=== PATIENT | male | born 1940 | race Caucasian/White ===

== ENCOUNTER → 2017-05-05 18:49 | Outpatient (CLI) | payer MEDICARE, SELFPAY | PROVIDERS: Family Provider Internal Medicine; PCP Internal Medicine; Visit Provider Podiatrist | DX: L97.529 Non-pressure chronic ulcer of other part of left foot with unspecified severity (principal) | CPT/HCPCS: 87070; 87205 ==

== ENCOUNTER → 2017-05-12 12:17 | Outpatient (CLI) | payer MEDICARE, SELFPAY ==
[2017-05-12 13:14] LABS: Hematocrit 36.7 % (40-54); Hemoglobin 12.7 g/dl (13.0-16.5); Mean Corp Hgb Conc 34.6 g/gl (32-36); Mean Corpuscular Hgb 32.5 pg (27.0-32.0); Mean Corpuscular Volume 93.9 fL (80-94); Mean Platelet Vol. 8.9 fl (6.2-12.0); Platelet Count 312 K/mm3 (150-450); RBC Distribution Width CV 13.2 % (11.6-14.6); RBC Distribution Width SD 43.8 fl (35.1-43.9); Red Blood Count 3.91 M/mm3 (4.6-6.2); White Blood Count 9.4 K/mm3 (4.4-11.0)
[2017-05-12 13:21] LABS: Erythrocyte Sedimentation Rate 23 mm/hr (0-20)
[2017-05-12 13:44] LABS: ALB/GLOB Ratio 0.8 RATIO (0.9-2.4); AST(SGOT) 18 U/L (15-37); Alanine Aminotransfer ALT/SGPT 16 U/L (16-61); Albumin, Serum 3.1 g/dL (3.2-5.0); Alkaline Phosphatase 65 U/L (45-117); Anion Gap 10 (5-15); BUN 42 mg/dL (7-18); CRP 9.55 mg/L (0.0-3.0); Calcium,Total 8.8 mg/dL (8.5-10.1); Chloride 100 mmol/L (98-107); Creatinine, Serum 4.19 mg/dL (0.70-1.30); EST Glomerular Filtration Rate 15 mL/min (>60); Est Glom Filt Rate - Afr Amer 18 mL/min (>60); Globulin 4.1 g/dL (2.2-4.2); Glucose 313 mg/dL (74-106); Potassium 3.7 mmol/L (3.5-5.1); Protein, Total 7.2 g/dL (6.4-8.2); Sodium Level 136 mmol/L (136-145)
[2017-05-12 17:31] LABS: Basophil% 0.3 % (0-1); Eosinophils% 1.5 % (0-5); Lymphocyte % 14.5 % (19-41); Monocyte% 8.4 % (0-10); Neutrophil # 6.89 X10^3/uL (2.7-7.7); Neutrophil % 75.1 % (47-70)
[2017-05-12 17:32] LABS: Absolute Lymphocyte Count 1.36 X10^3/ul (0.83-4.51); Absolute Neutrophil Count 7.1 X10^3/uL (2.0-7.7); Basophil# 0.03 X10^3/uL; Eosinophil# 0.14 X10^3/uL; Lymphocyte # 1.33 X10^3/ul (4.0); Monocyte# 0.77 X10^3/uL; POSITIVE COUNT NO; POSITIVE DIFFERENTIAL NO
== END ==
PROVIDERS: Family Provider Internal Medicine; PCP Internal Medicine; Visit Provider Podiatrist
DX: M10.9 Gout, unspecified (principal); L97.529 Non-pressure chronic ulcer of other part of left foot with unspecified severity; L03.90 Cellulitis, unspecified
CPT/HCPCS: 36415; 80053; 84550; 85025; 85652; 86140; 87070; 87186; 87205

== ENCOUNTER 2017-06-06 09:00 | Outpatient (RCR) | payer MEDICARE, SELFPAY ==
[2017-05-28 10:24] VITALS: BP 130/68; PULSE 98; RESP 18; TEMP 36; BMI 27.3
--- NOTE | 2017-05-28 12:56 | PN.PCM_ITS ---
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 The onset several months ago and the exact onset is unknown. He denies drainage and has stopped dressing care. He is confused and is only able to partially participate in his exam. 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 Medications: Reviewed. Allergies: Carvedilol. Social: Denies current smoking alcohol or drug use. Former smoking habits noted. Family: Not pertinent. Review of system: Denies fever, chill, nausea, fatigue, shortness of breath, claudication, chest pain. He has left second toe pain Progress of Wound: Return - Physical Exam Vital Signs Temp Pulse Resp BP 96.8 F L 98 18 130/68 H 05/28/17 10:24 05/28/17 10:24 05/28/17 10:24 05/28/17 10:24 General: Alert, Oriented x3, Cooperative HEENT: Atraumatic Extremities: No cyanosis, Capillary Refill Less than 3 Seconds, No Calf Tenderness - Negative Sue and Thakkar bilateral, Diminished Peripheral Pulses, Edema Skin: Ulcer/ Wound - No erythema, no streaking, no bhakti necrosis. On expression of the left second dorsal medial toe there is a seropurulent drainage with pain. There is bogginess. There is no additional purulence on expression or odor noted. There is edema to the left second toe noted. Wound Measurements and Assessment - Nurse 1 - General Ulcer Measurement Start: 05/28/17 10:23 Freq: Status: Active Protocol: Activity Type Activity Date Activity User E-Sign Co-Sign Detail Recorded Client Recorded Date Recorded By Document 05/28/17 10:24 [id number] 05/28/17 10:38 05/28/17 10:24 Wound Center Nurse 1 [Ulcer Assessment] #1 LEFT 2ND TOE -Combined with other wound No -Current Size (cm) - Length 0.1 -Current Size (cm) - Width 0.1 -Current Size (cm) - Depth 0.1 -Total Square Cm 0.01 -Date of Last Picture (Recall this 05/28/17 field) -Photo Taken Yes -Epithelialization None Present -Tunneling No -Undermining/Tunneling No -Circular Undermining No -Exudate Amt None Present (0 %) -Granulation Amt None Present (0 %) -Granulation Quality N/A -Slough/Fibrin No -Necrosis Amt None Present (0 %) -Structure Exposed N/A -Texture (Kelsie-wound Skin Appearance) No Abnormality -Moisture (Kelsie-wound Skin Appearance Assessed ) -Color (Kelsie-wound Skin Appearance) No Abnormality -Temperature (Kelsie-wound Skin Cool/Cold Appearance) -Tenderness on Palpation (Kelsie-wound Yes Skin Appearance) -Foul Odor after Cleansing Yes, Due to Product Use [Edema Assessment] -Lower Limb Edema Present No -Right Calf (cm) 32.2 -Right Ankle (cm) 21.0 -Left Calf (cm) 33.8 -Left Ankle (cm) 21.5 - Nurse 2 - General Ulcer CM Notes Start: 05/28/17 10:23 Freq: Status: Active Protocol: Activity Type Activity Date Activity User E-Sign Co-Sign Detail Recorded Client Recorded Date Recorded By Document 05/28/17 11:27 [id number] 05/28/17 12:02 05/28/17 11:27 Wound Center Nurse 2 [Procedure/Treatment] #1 LEFT 2ND TOE -Time 11:55 -Correct Patient Yes -Correct Side, Site, Position Yes -Correct Procedure Yes -Procedure Performed Yes -Type of Procedure Debridement -Clinical Debridement Subcutaneous -Post Debridement Size (cm) - Length 0.2 -Post Debridement Size (cm) - Width 0.2 -Post Debridement Size (cm) - Depth 0.1 -Total Square Cm 0.04 -Wound/Ulcer Outcome Not Healed -Ulcer Cleansing Rinsed/ Irrigated with Saline -Foul Odor after Cleansing No -Bioengineered Tissue No -Topical Lidocaine (%) 4 -Bleeding Controlled with Pressure -Treatment Response Procedure Tolerated Well [See Physician Procedure note for Specifics] Pain Scale: 0-10 Numeric [Pain] -Is Patient Pain Free? Yes Musculoskeletal: No Tenderness to Palpation of Joints or Extremities, Muscle Wasting, - - Subtle hallux valgus deformity is noted in the hallux abuts the second. The second toe is fairly rectus very mild visible contraction. There is laxity noted at the proximal interphalangeal joint Neurological: - - Lack of epicritic sensation to light touch left foot Psych/Mental Status: Normal Affect, Appropriate Debridement Note Post-Debridement Measurements/Treatment WC - Nurse 2 - General Ulcer CM Notes Start: 05/28/17 10:23 Freq: Status: Active Protocol: Activity Type Activity Date Activity User E-Sign Co-Sign Detail Recorded Client Recorded Date Recorded By Document 05/28/17 11:27 [id number] 05/28/17 12:02 05/28/17 11:27 Wound Center Nurse 2 #1 LEFT 2ND TOE -Time 11:55 -Correct Patient Yes -Correct Side, Site, Position Yes -Correct Procedure Yes -Procedure Performed Yes -Type of Procedure Debridement -Clinical Debridement Subcutaneous -Post Debridement Size (cm) - Length 0.2 -Post Debridement Size (cm) - Width 0.2 -Post Debridement Size (cm) - Depth 0.1 -Total Square Cm 0.04 -Wound/Ulcer Outcome Not Healed -Ulcer Cleansing Rinsed/ Irrigated with Saline -Foul Odor after Cleansing No -Bioengineered Tissue No -Topical Lidocaine (%) 4 -Bleeding Controlled with Pressure -Treatment Response Procedure Tolerated Well Pain Scale: 0-10 Numeric Is Patient Pain Free? Yes Wound debrided: dorsal medial second toe Laterality: Left Wound Grade/Stage: grade 3 Type of Debridement: Excisional debridement Anesthesia Used: 4% Lidocaine Solution Depth: in the subcutaneous layer Percentage of wound debrided: 100 Instrument Used: #15 blade Tissue Removed: fibrous, devitalized subcutaneous, biofilm, slough Severity: Fat Layer Exposed Amount of bleeding with debridement: Mild Bleeding Controlled with: Pressure Patient tolerated procedure well Assessment/Plan Active Problems Type 2 diabetes mellitus with diabetic polyneuropathy (Chronic) Chronic ulcer of left foot with fat layer exposed (Chronic) 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 Diabetes with neuropathy. Chronic kidney disease on hemodialysis. Delayed healing. Malnutrition suspected. Left foot deformity. Confusion and limited ability to participate in care plan Plan: I reviewed and discussed his care plan today. We discussed essentials needed for wound healing including infection management, pressure offloading, nutrition, and adequate blood flow. His ulcer site was debrided as noted in the clinical nursing care panel. I recommend changing the dressing daily with Aquacel ag. I recommend offloading this site by wearing a surgical shoe and placing a gauze in the proximal interspace between the first and second left toe. X-rays were obtained at the foot and ankle center earlier this month and this demonstrated osseous destruction and decreased bone density adjacent to the wound site at the proximal interphalangeal joint. There is no soft tissue emphysema or foreign body or acute fracture dislocation noted. This is concerning for osteomyelitis, gout, septic joint. His diagnostic laboratory data was also reviewed with a white blood cell count of 9.4, sedimentation rate 23, C-reactive protein 9.55, uric acid 6.0, creatinine 4.19. It is also noted his hemoglobin A1c from December 2016 was 5.2%. His most recent cultures obtained at the clinical setting demonstrated staph auricularis and coag negative staph. He completed a course of antibiotics including levofloxacin. Infectious disease referral was made to need to be rescheduled. It is noted he missed his last consultation scheduled visit last week. A refill of levofloxacin with renal dosing was provided with hopes of bone penetration with this medication of choice. His decreased redness and edema to the toe is noted however there is concern of continued deeper tissue involvement based on his x- ray findings, and inability to keep this site healed. It is noted he missed several follow-up appointments. I also recommend noninvasive vascular studies in which he orders previously provided. A new order was provided today for segmental pressure, SUSAN, and systolic toe pressures; we will assist him in scheduling this exam. I am concerned about his ability to follow the care plan due to his memory loss and confusion. I discussed this at length with his daughter during his last clinical visit at the foot and ankle center recommended a family member or trained professional accompany him with each visit. To continue with proper diabetic glycemic control and nutritional supplementation to optimize healing. The previously recommended Ron nutritional supplement. Hyperbaric oxygen therapy will be considered in the future. Other options include surgical resection of the involved joint that has deteriorated. He has stabilized at this time. First, I recommend establishing his baseline workup and review this with a family member or care provider. I recommend he returns to clinic in 1 week or call sooner if he has any questions or concerns. I answered all his questions today.
[2017-06-04 11:35] VITALS: BP 133/67; PULSE 89; RESP 18; TEMP 35.8; BMI 27.3
--- NOTE | 2017-06-04 11:40 | BON_PTH ---
PATIENT: CARINA CLARK LOC: [facility] U#:[id number] AGE/SX: 76/M ROOM: RE06/06/[address]: Dr. Hawa Bach DPM : 1940 BED: DIS: 06/09/2017 SPEC #: [id number] RECD: 06/04/17 12:48 STATUS: CHERYL SHANIKA #: [id number] YOSI: 06/04/17 11:[address]: Hawa Bach DEPT: SURGICAL PATHOLOGY RECD BY: Katlyn Vazquez ENTERED: 06/04/17 14:46 SP TYPE: Bone OTHR DR: Dr. Geovanna Ly DO Tissues: Bone of foot, NOS Procedures: Decalcification bone/plaque Surgery Specimen Level III Surgery Specimen Level IV HEADER OPERATION: Bone biopsy left second toe PRE-OP DIAGNOSIS: Nonhealing wound with bone exposed TISSUE SUBMITTED: Left second toe bone MICROSCOPIC DIAGNOSIS Left second toe bone, biopsy: The specimen did not survive processing. SJ:lópez 06/12/17 COMMENT If there is high suspicion of osteomyelitis, rebiopsy is suggested if clinically indicated. Case has been reviewed in consultation with Dr. Martinez who concurs with the above diagnosis. IDC:AM MICROSCOPIC DESCRIPTION Slides are reviewed. GROSS DESCRIPTION Received in fixative is one container labeled with the patient's name and designated bone left second toe. The specimen consists of an irregular fragment of avila yellow bone measuring 0.2 x 0.2 x <0.1 cm. The specimen is totally submitted in one cassette after decalcification. / AM:lópez 06/04/17 TC: Cannot code CPT: No charge
--- NOTE | 2017-06-04 13:20 | PN.PCM_ITS ---
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 He did have a consultation earlier this morning with infectious disease, Dr. Kim. His antibiotics were changed. He is confused and is only able to partially participate in his exam. 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 Medications: Reviewed. Allergies: Carvedilol. Social: Denies current smoking alcohol or drug use. Former smoking habits noted. Family: Not pertinent. Review of system: Denies fever, chill, nausea, fatigue, shortness of breath, claudication, chest pain. He has left second toe pain Progress of Wound: Stable - Physical Exam Vital Signs Temp Pulse Resp BP 96.4 F L 89 18 133/67 H 06/04/17 11:35 06/04/17 11:35 06/04/17 11:35 06/04/17 11:35 General: Alert, Cooperative, Confused - Intermittent Extremities: No cyanosis, Capillary Refill Less than 3 Seconds, No Calf Tenderness - Negative Sue and Thakkar sign, Diminished Peripheral Pulses, Edema - Decreased, Tenderness - Pain with wound manipulation Skin: Ulcer/ Wound - His erythema and edema to the involved second toe has decreased. There is no odor or warmth. There is no purulence on expression or streaking or bhakti necrosis or eschar noted to the site. Upon wound debridement however there was a little sliver of bone or joint surface and was expressed from the wound bed. This was soft with slight discoloration in it is noted this is a very small piece measuring less than 3 mm in size. Wound Measurements and Assessment WC - Nurse 1 - General Ulcer Measurement Start: 05/28/17 10:23 Freq: Status: Active Protocol: Activity Type Activity Date Activity User E-Sign Co-Sign Detail Recorded Client Recorded Date Recorded By Document 06/04/17 11:35 RB [id number] 06/04/17 11:41 RB 06/04/17 11:35 Wound Center Nurse 1 [Ulcer Assessment] #1 LEFT 2ND TOE -Combined with other wound No -Current Size (cm) - Length 0.1 -Current Size (cm) - Width 0.1 -Current Size (cm) - Depth 0.1 -Total Square Cm 0.01 -Photo Taken No -Epithelialization Small 1-33% -Tunneling No -Undermining/Tunneling No -Circular Undermining No -Classification - Thickness Full Thickness without Exposed Support Structure -Exudate Amt None Present (0 %) -Wound Margin Distinct, Outline Attached -Granulation Amt Medium (34-66%) -Granulation Quality [place] -Slough/Fibrin Yes -Necrosis Amt Medium (34-66%) -Necrotic Tissue Type Adherent Slough -Structure Exposed N/A -Texture (Kelsie-wound Skin Appearance) Assessed -Moisture (Kelsie-wound Skin Appearance Assessed ) Dry/Scaly -Color (Kelsie-wound Skin Appearance) Assessed -Temperature (Kelsie-wound Skin No Abnormality Appearance) (Pt Warm) -Tenderness on Palpation (Kelsie-wound No Skin Appearance) -Ulcer Cleansing Rinsed/ Irrigated with Saline -Foul Odor after Cleansing No -Anesthetic Used 5% Lidocaine Gel [Edema Assessment] -Lower Limb Edema Present Yes -Left Calf (cm) 32 -Left Ankle (cm) 20.5 WC - Nurse 2 - General Ulcer CM Notes Start: 05/28/17 10:23 Freq: Status: Active Protocol: Activity Type Activity Date Activity User E-Sign Co-Sign Detail Recorded Client Recorded Date Recorded By Document 06/04/17 12:14 [id number] 06/04/17 12:15 06/04/17 12:14 Wound Center Nurse 2 [Procedure/Treatment] #1 LEFT 2ND TOE -Time 12:15 -Correct Patient Yes -Correct Side, Site, Position Yes -Correct Procedure Yes -Procedure Performed Yes -Type of Procedure Debridement -Clinical Debridement Bone -Post Debridement Size (cm) - Length 0.2 -Post Debridement Size (cm) - Width 0.2 -Post Debridement Size (cm) - Depth 0.2 -Total Square Cm 0.04 -Wound/Ulcer Outcome Not Healed -Ulcer Cleansing Rinsed/ Irrigated with Saline -Foul Odor after Cleansing No -Bioengineered Tissue No -Bleeding Controlled with Pressure -Treatment Response Procedure Tolerated Well [See Physician Procedure note for Specifics] Pain Scale: 0-10 Numeric [Pain] -Is Patient Pain Free? Yes Musculoskeletal: Muscle Wasting, - - No pain on palpation to the second metatarsophalangeal joint Neurological: Sensory exam intact to light touch and pain Psych/Mental Status: Normal Affect, Appropriate Debridement Note Post-Debridement Measurements/Treatment - Nurse 2 - General Ulcer CM Notes Start: 05/28/17 10:23 Freq: Status: Active Protocol: Activity Type Activity Date Activity User E-Sign Co-Sign Detail Recorded Client Recorded Date Recorded By Document 05/28/17 11:27 [id number] 05/28/17 12:02 Document 06/04/17 12:14 [id number] 06/04/17 12:15 05/28/17 06/04/17 11:27 12:14 Wound Center Nurse 2 #1 LEFT 2ND TOE -Time 11:55 12:15 -Correct Patient Yes Yes -Correct Side, Site, Position Yes Yes -Correct Procedure Yes Yes -Procedure Performed Yes Yes -Type of Procedure Debridement Debridement -Clinical Debridement Subcutaneous Bone -Post Debridement Size (cm) - Length 0.2 0.2 -Post Debridement Size (cm) - Width 0.2 0.2 -Post Debridement Size (cm) - Depth 0.1 0.2 -Total Square Cm 0.04 0.04 -Wound/Ulcer Outcome Not Healed Not Healed -Ulcer Cleansing Rinsed/ Rinsed/ Irrigated with Irrigated with Saline Saline -Foul Odor after Cleansing No No -Bioengineered Tissue No No -Topical Lidocaine (%) 4 -Bleeding Controlled with Pressure Pressure -Treatment Response Procedure Procedure Tolerated Well Tolerated Well Pain Scale: 0-10 Numeric Is Patient Pain Free? Yes Yes Wound debrided: 2nd toe Laterality: Left Wound Grade/Stage: grade 3 Type of Debridement: Excisional debridement Anesthesia Used: 4% Lidocaine Solution Depth: in the subcutaneous layer Percentage of wound debrided: 100 Instrument Used: 3mm curette, Forceps Tissue Removed: fibrous, devitalized subcutaneous, biofilm, slough Severity: Fat Layer Exposed Amount of bleeding with debridement: Mild Bleeding Controlled with: Pressure Patient tolerated procedure well Assessment/Plan Active Problems (Last Updated 06/04/17 @ 08:45 by Lela Soto) Type 2 diabetes mellitus with diabetic polyneuropathy (Chronic) Chronic ulcer of left foot with fat layer exposed (Chronic) 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 Diabetes with neuropathy. Chronic kidney disease on hemodialysis. Delayed healing. Malnutrition suspected. Left foot deformity. Confusion and limited ability to participate in care plan Plan: I reviewed and discussed his care plan today. We discussed essentials needed for wound healing including infection management, pressure offloading, nutrition, and adequate blood flow. His ulcer site was debrided as noted in the clinical nursing care panel. Bone and joint tissue was expressed from the wound during the debridement process and this tissue sliver was sent for testing and microbiology (aerobic, anaerobic, acid-fast, fungal) and pathology. I recommend changing the dressing daily with Aquacel ag. I recommend offloading this site by wearing a surgical shoe and placing a gauze in the proximal interspace between the first and second left toe. X-rays were obtained at the foot and ankle center earlier this month and this demonstrated osseous destruction and decreased bone density adjacent to the wound site at the proximal interphalangeal joint. I would like him to get an updated x-ray however he is not able to travel to this area by himself at this time in a safe manner. I urged him to bring a family member and wound care center staff will call his family to try to arrange this. The patient reports his son is likely available to come with him next week. There is no soft tissue emphysema or foreign body or acute fracture dislocation noted. This is concerning for osteomyelitis, gout, septic joint. His diagnostic laboratory data was also reviewed with a white blood cell count of 9.4, sedimentation rate 23, C- reactive protein 9.55, uric acid 6.0, creatinine 4.19. It is also noted his hemoglobin A1c from December 2016 was 5.2%. His most recent cultures obtained at the clinical setting demonstrated staph auricularis and coag negative staph. He completed a course of antibiotics including levofloxacin ankle improvement. However, in his repeat culture after the sensitivities were finalized it is noted that he does have some resistance to levofloxacin. Infectious disease consultation is greatly appreciated and he was changed to doxycycline in which a prescription was provided today. I also recommend noninvasive vascular studies in which he orders previously provided. A new order was provided today for segmental pressure, SUSAN, and systolic toe pressures ; he is scheduled to have this exam completed tomorrow morning. To continue with proper diabetic glycemic control and nutritional supplementation to optimize healing. The previously recommended Ron nutritional supplement. Hyperbaric oxygen therapy will be considered in the future. Other options include surgical resection of the involved joint that has deteriorated. He has stabilized at this time. First, I recommend establishing his baseline workup and review this with a family member or care provider. I recommend he returns to clinic in 1 week or call sooner if he has any questions or concerns. I answered all his questions today.
--- NOTE | 2017-06-04 13:35 | PCM.HP.ID ---
Problem List (1) Osteomyelitis of left foot Status: Suspected Reason for Consult: osteo Consulted by: Dr. Bach History of Present Illness: The patient is a 76 year old M with neuropathy who follows at wound clinic for L foot ulcer, present for several months. No fever or chills. Had 2nd toe swelling, redness, ulceration. Debridement and cx done. Xray at wound center with concern for bone changes. Has been on levaquin with some improvement. Toe is healing. Cx with Staph auricularis. No n/v/d on abx. Full ROS performed and neg except as noted above. 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) Hallux valgus (acquired), left foot (Chronic) End stage renal disease on dialysis (Chronic) HLD (hyperlipidemia) (Chronic) HTN (hypertension) (Chronic) Hypothyroidism (Chronic) CAD (coronary artery disease) (Chronic) PVD (peripheral vascular disease) (Chronic) Diabetes mellitus, type II (Chronic) S/P PTCA (percutaneous transluminal coronary angioplasty) (Chronic) 02/01/10, PTCA/stent (BMS) to proximal LCx; PTCA with MARISOL mid CFX 05/23; Cardiomyopathy, ischemic (Chronic) Systolic CHF, chronic (Chronic) Allergies/Adverse Reactions: Allergies carvedilol [From Coreg] Allergy (Verified 02/20/17 17:53) Unknown Home Medications: Ambulatory Orders Medication Instructions Recorded Zolpidem Tartrate [Ambien] 12.5 mg PO QHS PRN PRN 02/25/13 Cilostazol [Pletal] 100 mg PO DAILY 02/09/14 Donepezil HCl [Aricept] 10 mg PO QHS 07/02/16 Nitroglycerin [Nitrostat] 0.4 mg SUBLINGUAL Q5M PRN 07/02/16 Simvastatin [Zocor] 10 mg PO QHS 07/02/16 Isosorbide Mononitrate [Imdur] 30 mg PO BID 12/13/16 Ranolazine [Ranexa] 500 mg PO BID 12/27/16 Insulin Detemir [Levemir FlexPen] 20 units SC DAILY 01/02/17 Metoprolol Tartrate [Lopressor 25 mg PO BID tab 01/02/17 (beta judith)] niacin ER 500 mg tablet,extended 500 mg PO DAILY #30 tab 05/09/17 release 24 hr Lantus Solostar 100 units SQ QHS 05/28/17 Plavix PO 05/28/17 Symbicort 160-4.5 Mcg Inhaler 05/28/17 Tricor 145 mg PO DAILY 05/28/17 Vitamin D3 50,000 units PO QWEEK 05/28/17 aspirin 81 mg tablet,delayed 81 mg PO QDAY 06/04/17 release clopidogrel 75 mg tablet 75 mg PO QDAY 06/04/17 ergocalciferol (vitamin D2) 50,000 50,000 unit PO QWEEK 06/04/17 unit capsule fenofibrate nanocrystallized 145 145 mg PO QDAY 06/04/17 mg tablet furosemide 20 mg tablet 20 mg PO QDAY 06/04/17 levothyroxine 50 mcg tablet 50 mcg PO QDAY 06/04/17 [id number] tablet 1 tab PO QDAY 06/04/17 - Social History SMOKING STATUS:: Former smoker Vital Signs Temp Pulse Resp BP 96.4 F L 89 18 133/67 H 06/04/17 11:35 06/04/17 11:35 06/04/17 11:35 06/04/17 11:35 Weight: 88.859 kg Body Mass Index (BMI) 27.3 Finger Stick Blood Glucose 68 - Other Studies Radiology: [] reviewed Other Studies: [] Route of nutrition/ use of supplements: [] Nutritional Intake: [] IV Site: [] Marin Catheter: [] - Physical Exam General: Alert, Oriented x3, Cooperative, No apparent distress HEENT: Atraumatic, PERRLA, EOMI Neck: Supple, No Nodes Lungs: Clear to auscultation, Normal air movement Cardiovascular: Regular rate, Regular Rhythm Abdomen: Soft, Non Tender, Non-Distended Extremities: No edema Skin: Ulcer/ Wound - healing L 2nd toe with some mild swelling and discoloration Musculoskeletal: No Tenderness to Palpation of Joints or Extremities - Assessment/Plan Antibiotics: [] Assessment/Plan: [] Active and Suspected Problems (Last Updated 06/04/17 @ 08:45 by Lela Soto) Osteomyelitis of left foot (Suspected) Osteomyelitis of left foot (Suspected) Septic joint (Suspected) L 2nd toe osteo - cx with staph auricularis, R to levaquin, so will add po doxy 100mg bid for 6 week course. Overall seems to be improving. Thank you, will follow as needed, d/w Dr. Bach.
--- NOTE | 2017-06-14 14:48 | LEAS ---
Arterial Study - Arterial Study Arterial Study: This is a 76-year-old male with a history of hypertension, hyperlipidemia, diabetes mellitus, chronic kidney disease, and peripheral arterial occlusive disease. The patient presents with an ulceration on the left second toe. With a history of peripheral arterial occlusive disease, the patient was brought to the noninvasive vascular laboratory at this time for the purpose of bilateral noninvasive lower extremity arterial assessment. Doppler signal assessment was used to evaluate the pulses at ankle level bilaterally. On the right, the posterior tibial and dorsalis pedis pulses were biphasic. Left posterior tibial pulse was biphasic. The left dorsalis pedis pulse was monophasic. Segmental limb pressures were obtained bilaterally. The right low thigh pressure was measured at 154 mmHg. The right calf pressure was measured at 125 mmHg. The right ankle pressure, as determined by posterior tibial pulse, was measured at 86 mmHg. The right ankle pressure, as determined by dorsalis pedis pulse, was measured at 83 mmHg. The right digital pressure was measured at 55 mmHg. The left low thigh pressure was measured at 125 mmHg. The left calf pressure was measured at 103 mmHg. The left ankle pressure, as determined by posterior tibial pulse, was measured at 74 mmHg. The left ankle pressure, as determined by dorsalis pedis pulse, was measured at 72 mmHg. The left digital pressure was measured at 46 mmHg. Pulse-volume recordings were obtained bilaterally and segmentally. Waveform amplitudes appeared diminished at calf, ankle, and digital levels bilaterally. Resting ankle-brachial indices were calculated bilaterally. The resting right ankle-brachial index was calculated to be 0.78. The resting left ankle-brachial index was calculated to be 0.67. Digital-brachial indices were calculated bilaterally. The right digital-brachial index was calculated to be 0.50. The left digital-brachial index was calculated to be 0.42. 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 Biphasic waveforms were noted at ankle level on the right. Biphasic and monophasic waveforms were noted at ankle level on the left. Resting ankle-brachial indices are moderately diminished bilaterally. Digital-brachial indices are also moderately diminished bilaterally. 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
--- NOTE | 2017-06-14 14:52 | LEAS_ITS ---
Arterial Study - Arterial Study Arterial Study: This is a 76-year-old male with a history of hypertension, hyperlipidemia, diabetes mellitus, chronic kidney disease, and peripheral arterial occlusive disease. The patient presents with an ulceration on the left second toe. With a history of peripheral arterial occlusive disease, the patient was brought to the noninvasive vascular laboratory at this time for the purpose of bilateral noninvasive lower extremity arterial assessment. Doppler signal assessment was used to evaluate the pulses at ankle level bilaterally. On the right, the posterior tibial and dorsalis pedis pulses were biphasic. Left posterior tibial pulse was biphasic. The left dorsalis pedis pulse was monophasic. Segmental limb pressures were obtained bilaterally. The right low thigh pressure was measured at 154 mmHg. The right calf pressure was measured at 125 mmHg. The right ankle pressure, as determined by posterior tibial pulse, was measured at 86 mmHg. The right ankle pressure, as determined by dorsalis pedis pulse, was measured at 83 mmHg. The right digital pressure was measured at 55 mmHg. The left low thigh pressure was measured at 125 mmHg. The left calf pressure was measured at 103 mmHg. The left ankle pressure, as determined by posterior tibial pulse, was measured at 74 mmHg. The left ankle pressure, as determined by dorsalis pedis pulse, was measured at 72 mmHg. The left digital pressure was measured at 46 mmHg. Pulse-volume recordings were obtained bilaterally and segmentally. Waveform amplitudes appeared diminished at calf, ankle, and digital levels bilaterally. Resting ankle-brachial indices were calculated bilaterally. The resting right ankle-brachial index was calculated to be 0.78. The resting left ankle- brachial index was calculated to be 0.67. Digital-brachial indices were calculated bilaterally. The right digital- brachial index was calculated to be 0.50. The left digital-brachial index was calculated to be 0.42. 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 Biphasic waveforms were noted at ankle level on the right. Biphasic and monophasic waveforms were noted at ankle level on the left. Resting ankle-brachial indices are moderately diminished bilaterally. Digital-brachial indices are also moderately diminished bilaterally. 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
== END 2017-06-09 23:59 ==
LOC: CVS 09:00
PROVIDERS: Family Provider Internal Medicine; PCP Internal Medicine; Visit Provider Podiatrist
DX: E11.621 Type 2 diabetes mellitus with foot ulcer (principal); L97.522 Non-pressure chronic ulcer of other part of left foot with fat layer exposed; E11.42 Type 2 diabetes mellitus with diabetic polyneuropathy; R41.3 Other amnesia; M20.12 Hallux valgus (acquired), left foot; E11.22 Type 2 diabetes mellitus with diabetic chronic kidney disease; E78.5 Hyperlipidemia, unspecified; I25.10 Atherosclerotic heart disease of native coronary artery without angina pectoris; Z87.891 Personal history of nicotine dependence; M79.675 Pain in left toe(s); Z79.899 Other long term (current) drug therapy; Z79.4 Long term (current) use of insulin; Z79.02 Long term (current) use of antithrombotics/antiplatelets; Z79.51 Long term (current) use of inhaled steroids; N18.6 End stage renal disease; I13.2 Hypertensive heart and chronic kidney disease with heart failure and with stage 5 chronic kidney disease, or end stage renal disease; I50.22 Chronic systolic (congestive) heart failure
CPT/HCPCS: 11042; 11044; 87070; 87075; 87205; 88304; 88305; 88311; 93923; 99213; G0463

== ENCOUNTER 2017-07-02 10:00 | Outpatient (RCR) | payer MEDICARE, SELFPAY ==
[2017-06-10 01:09] VITALS: PULSE 89; RESP 18; TEMP 35.8
[2017-06-11 10:37] VITALS: BP 101/54; PULSE 104; RESP 18; TEMP 36.2
--- NOTE | 2017-06-11 13:06 | PN.PCM_ITS ---
(1) Chronic ulcer of left foot with fat layer exposed Status: Chronic Current Visit: Yes Code(s): L97.522 - Non-pressure chronic ulcer of other part of left foot with fat layer exposed (2) PVD (peripheral vascular disease) Status: Chronic Current Visit: Yes Code(s): I73.9 - Peripheral vascular disease, unspecified (3) Osteomyelitis of left foot Status: Suspected Current Visit: Yes Code(s): M86.9 - Osteomyelitis, unspecified (4) Type 2 diabetes mellitus with diabetic polyneuropathy Status: Chronic Current Visit: Yes Code(s): E11.42 - Type 2 diabetes mellitus with diabetic polyneuropathy (5) Memory loss due to medical condition Status: Chronic Current Visit: Yes Code(s): R41.3 - Other amnesia (6) End stage renal disease on dialysis Status: Chronic Current Visit: Yes Code(s): N18.6 - End stage renal disease ; Z99.2 - Dependence on renal dialysis Type of Wound Date of Service: 06/11/17 Chief Complaint: Left foot ulcer History of Wound: This 76-year-old male is referred to the wound center from the foot and ankle center for left second toe chronic ulcer that continues to have recurrence. He did have a consultation previously with infectious disease , Dr. Kim. His antibiotics were changed to doxycycline and he continues as advised. He is confused and is only able to partially participate in his exam.His son will plan to attend his future clinic visits starting next week. He has pain to his toe. He denies fever, chills, nausea, vomiting, toe odor or redness. His toe swelling has decreased. He wears a surgical shoe. Progress of Wound: Stable - Physical Exam Vital Signs Temp Pulse Resp BP 97.1 F L 104 H 18 101/54 L 06/11/17 10:37 06/11/17 10:37 06/11/17 10:37 06/11/17 10:37 General: Alert, Oriented x3, Cooperative Extremities: No cyanosis, Capillary Refill Less than 3 Seconds, No Calf Tenderness - negative tyron and corbin bilateral, Diminished Peripheral Pulses, Edema - decreased second toe Skin: Ulcer/ Wound - no purulence, no erythema, no infection, no acute signs of infection noted. there is no additional bone or exudate from the wound noted today., - - atrophic skin . no maceration Wound Measurements and Assessment WC - Nurse 1 - General Ulcer Measurement Start: 06/11/17 10:36 Freq: Status: Active Protocol: Activity Type Activity Date Activity User E-Sign Co-Sign Detail Recorded Client Recorded Date Recorded By Document 06/11/17 10:37 [id number] 06/11/17 10:40 06/11/17 10:37 Wound Center Nurse 1 [Ulcer Assessment] #1 LEFT 2ND TOE -Combined with other wound No -Current Size (cm) - Length 0.1 -Current Size (cm) - Width 0.1 -Current Size (cm) - Depth 0.1 -Total Square Cm 0.01 -Photo Taken No -Epithelialization Large 67-100% -Tunneling No -Undermining/Tunneling No -Circular Undermining No -Exudate Amt None Present (0 %) -Wound Margin Flat & Intact -Granulation Amt None Present (0 %) -Slough/Fibrin Yes -Necrosis Amt Large (67-100%) -Necrotic Tissue Type Adherent Slough -Structure Exposed N/A -Texture (Kelsie-wound Skin Appearance) Assessed Localized Edema -Moisture (Kelsie-wound Skin Appearance Assessed ) Dry/Scaly -Color (Kelsie-wound Skin Appearance) Assessed -Temperature (Kelsie-wound Skin No Abnormality Appearance) (Pt Warm) -Tenderness on Palpation (Kelsie-wound No Skin Appearance) -Ulcer Cleansing Rinsed/ Irrigated with Saline -Foul Odor after Cleansing No -Anesthetic Used 4% Lidocaine Solution [Edema Assessment] -Lower Limb Edema Present No WC - Nurse 2 - General Ulcer CM Notes Start: 06/11/17 10:36 Freq: Status: Active Protocol: Activity Type Activity Date Activity User E-Sign Co-Sign Detail Recorded Client Recorded Date Recorded By Document 06/11/17 10:54 [id number] 06/11/17 10:56 06/11/17 10:54 Wound Center Nurse 2 [Procedure/Treatment] #1 LEFT 2ND TOE -Time 10:55 -Correct Patient Yes -Correct Side, Site, Position Yes -Correct Procedure Yes -Procedure Performed Yes -Type of Procedure Debridement -Clinical Debridement Subcutaneous -Post Debridement Size (cm) - Length 0.2 -Post Debridement Size (cm) - Width 0.2 -Post Debridement Size (cm) - Depth 0.2 -Total Square Cm 0.04 -Wound/Ulcer Outcome Not Healed -Ulcer Cleansing Rinsed/ Irrigated with Saline -Foul Odor after Cleansing No -Bioengineered Tissue No -Bleeding Controlled with Pressure -Treatment Response Procedure Tolerated Well [See Physician Procedure note for Specifics] Pain Scale: 0-10 Numeric [Pain] -Is Patient Pain Free? Yes Musculoskeletal: No Tenderness to Palpation of Joints or Extremities, Muscle Wasting, - - short second toe, straight and laxity to joints noted. no fluctuance on palpation Neurological: Sensory exam intact to light touch and pain Psych/Mental Status: Normal Affect, Appropriate Debridement Note Post-Debridement Measurements/Treatment WC - Nurse 2 - General Ulcer CM Notes Start: 06/11/17 10:36 Freq: Status: Active Protocol: Activity Type Activity Date Activity User E-Sign Co-Sign Detail Recorded Client Recorded Date Recorded By Document 06/11/17 10:54 [id number] 06/11/17 10:56 BARB 06/11/17 10:54 Wound Center Nurse 2 #1 LEFT 2ND TOE -Time 10:55 -Correct Patient Yes -Correct Side, Site, Position Yes -Correct Procedure Yes -Procedure Performed Yes -Type of Procedure Debridement -Clinical Debridement Subcutaneous -Post Debridement Size (cm) - Length 0.2 -Post Debridement Size (cm) - Width 0.2 -Post Debridement Size (cm) - Depth 0.2 -Total Square Cm 0.04 -Wound/Ulcer Outcome Not Healed -Ulcer Cleansing Rinsed/ Irrigated with Saline -Foul Odor after Cleansing No -Bioengineered Tissue No -Bleeding Controlled with Pressure -Treatment Response Procedure Tolerated Well Pain Scale: 0-10 Numeric Is Patient Pain Free? Yes Wound debrided: 2nd toe Laterality: Left Type of Debridement: Excisional debridement Anesthesia Used: 5% Lidocaine Gel Depth: in the subcutaneous layer Percentage of wound debrided: 100 Instrument Used: #15 blade Tissue Removed: fibrous, devitalized subcutaneous, biofilm, slough Severity: Fat Layer Exposed Amount of bleeding with debridement: Mild Bleeding Controlled with: Pressure Patient tolerated procedure well Assessment/Plan Active Problems (Last Updated 06/04/17 @ 08:45 by Lela Soto) Type 2 diabetes mellitus with diabetic polyneuropathy (Chronic) Chronic ulcer of left foot with fat layer exposed (Chronic) 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 Diabetes with neuropathy. Chronic kidney disease on hemodialysis. Delayed healing. Malnutrition suspected. Left foot deformity. Confusion and limited ability to participate in care plan Plan: I reviewed and discussed his care plan today. We discussed essentials needed for wound healing including infection management, pressure offloading, nutrition, and adequate blood flow. His ulcer site was debrided as noted in the clinical nursing care panel. Bone and joint tissue was expressed from the wound during the debridement process last week, and this tissue sliver was sent for testing and microbiology (aerobic, anaerobic, acid-fast, fungal) and pathology. The pathology results are pending. There is no bacterial growth noted on the microbiology assessment. I recommend changing the dressing daily with Aquacel ag. I recommend offloading this site by wearing a surgical shoe and placing a gauze in the proximal interspace between the first and second left toe. X-rays were obtained at the foot and ankle center earlier this month and this demonstrated osseous destruction and decreased bone density adjacent to the wound site at the proximal interphalangeal joint. I would like him to get an updated x-ray however he is not able to travel to this area by himself at this time in a safe manner. I urged him to bring a family member and wound care center staff will call his family to try to arrange this for next week. The patient reports his son is likely available to come with him next week. There is no soft tissue emphysema or foreign body or acute fracture dislocation noted. This is concerning for osteomyelitis, gout, septic joint. His diagnostic laboratory data was also reviewed with a white blood cell count of 9.4, sedimentation rate 23, C-reactive protein 9.55, uric acid 6.0, creatinine 4.19. It is also noted his hemoglobin A1c from December 2016 was 5.2%. His most recent cultures obtained at the clinical setting demonstrated staph auricularis and coag negative staph. To continue doxy antibiotic per infectious disease. I reviewed the results of his noninvasive vascular studies today. His studies are abnormal and I referred him to Dr. Diamond, vascular surgeon to see if intervention is possible; he has demosntrated significant delays in healing thus far. To continue with proper diabetic glycemic control and nutritional supplementation to optimize healing. I previously recommended Ron nutritional supplement. Hyperbaric oxygen therapy will be considered in the future. Other options include surgical resection of the involved joint that has deteriorated. He has stabilized at this time. First, I recommend establishing his baseline workup and review this with a family member or care provider. I recommend he returns to clinic in 1 week or call sooner if he has any questions or concerns; a wound care center provider will be covering. I answered all his questions today.
[2017-06-18 10:01] VITALS: BP 104/62; PULSE 100; RESP 18; TEMP 36.5
--- NOTE | 2017-06-18 18:01 | PCM.WC.PN ---
(1) Chronic ulcer of left foot with fat layer exposed Status: Chronic Current Visit: Yes Code(s): L97.522 - Non-pressure chronic ulcer of other part of left foot with fat layer exposed (2) Diabetes mellitus, type II Status: Chronic Current Visit: Yes Code(s): E11.9 - Type 2 diabetes mellitus without complications (3) Hallux valgus (acquired), left foot Status: Chronic Current Visit: Yes Code(s): M20.12 - Hallux valgus (acquired), left foot (4) Osteomyelitis of left foot Status: Suspected Current Visit: Yes Code(s): M86.9 - Osteomyelitis, unspecified Type of Wound Date of Service: 06/18/17 Chief Complaint: Left foot ulcer History of Wound: This 76-year-old male is referred to the wound center from the foot and ankle center for left second toe chronic ulcer that continues to have recurrence. He did have a consultation previously with infectious disease, Dr. Kim. His antibiotics were changed to doxycycline and he continues as advised. He is confused and is only able to partially participate in his exam.His son will plan to attend his future clinic visits starting next week. He has pain to his toe. He denies fever, chills, nausea, vomiting, toe odor or redness. His toe swelling has decreased. He wears a surgical shoe. Progress of Wound: Courtesy visit for Dr Bach. Patient is here with his son today and wound is said to be stable. Pain of his left second toe is said to have improved. No significant discharge. He still on his antibiotics. - Physical Exam Vital Signs Temp Pulse Resp BP 97.7 F L 100 18 104/62 06/18/17 10:01 06/18/17 10:01 06/18/17 10:01 06/18/17 10:01 General: Alert, Cooperative, No apparent distress HEENT: Atraumatic, Normocephalic Oral: Moist Mucosa Neck: Supple Lungs: Normal air movement Cardiovascular: Tachycardic Extremities: No cyanosis Skin: Ulcer/ Wound Wound Measurements and Assessment WC - Nurse 1 - General Ulcer Measurement Start: 06/11/17 10:36 Freq: Status: Active Protocol: Activity Type Activity Date Activity User E-Sign Co-Sign Detail Recorded Client Recorded Date Recorded By Document 06/18/17 10:01 [email or web address] [id number] 06/18/17 10:04 JF 06/18/17 10:01 Wound Center Nurse 1 [Ulcer Assessment] #1 LEFT 2ND TOE -Combined with other wound No -Current Size (cm) - Length 0.1 -Current Size (cm) - Width 0.1 -Current Size (cm) - Depth 0.1 -Total Square Cm 0.01 -Photo Taken No -Epithelialization Large 67-100% -Tunneling No -Undermining/Tunneling No -Circular Undermining No -Exudate Amt None Present (0 %) -Wound Margin Flat & Intact -Granulation Amt None Present (0 %) -Necrosis Amt Large (67-100%) -Necrotic Tissue Type Adherent Slough -Structure Exposed N/A -Texture (Kelsie-wound Skin Appearance) Assessed -Moisture (Kelsie-wound Skin Appearance Assessed ) Dry/Scaly -Color (Kelsie-wound Skin Appearance) Assessed -Temperature (Kelsie-wound Skin No Abnormality Appearance) (Pt Warm) -Tenderness on Palpation (Kelsie-wound No Skin Appearance) -Ulcer Cleansing Rinsed/ Irrigated with Saline -Foul Odor after Cleansing No -Anesthetic Used 5% Lidocaine Gel [Edema Assessment] -Lower Limb Edema Present Yes -Left Calf (cm) 30.9 -Left Ankle (cm) 20.0 WC - Nurse 2 - General Ulcer CM Notes Start: 06/11/17 10:36 Freq: Status: Active Protocol: Activity Type Activity Date Activity User E-Sign Co-Sign Detail Recorded Client Recorded Date Recorded By Document 06/18/17 11:33 DV [id number] 06/18/17 11:34 DV 06/18/17 11:33 Wound Center Nurse 2 [Procedure/Treatment] #1 LEFT 2ND TOE -Time 11:33 -Correct Patient Yes -Correct Side, Site, Position Yes -Correct Procedure Yes -Procedure Performed Yes -Type of Procedure Debridement -Clinical Debridement Subcutaneous -Post Debridement Size (cm) - Length 0.2 -Post Debridement Size (cm) - Width 0.2 -Post Debridement Size (cm) - Depth 0.2 -Total Square Cm 0.04 -Wound/Ulcer Outcome Not Healed -Ulcer Cleansing Rinsed/ Irrigated with Saline -Foul Odor after Cleansing No -Bioengineered Tissue No -Bleeding Controlled with Pressure -Treatment Response Procedure Tolerated Well [See Physician Procedure note for Specifics] Pain Scale: 0-10 Numeric [Pain] -Is Patient Pain Free? Yes Musculoskeletal: No Muscle Wasting Neurological: Cranial nerves II-XII grossly intact Psych/Mental Status: Normal Affect Debridement Note Post-Debridement Measurements/Treatment WC - Nurse 2 - General Ulcer CM Notes Start: 06/11/17 10:36 Freq: Status: Active Protocol: Activity Type Activity Date Activity User E-Sign Co-Sign Detail Recorded Client Recorded Date Recorded By Document 06/11/17 10:54 [id number] 06/11/17 10:56 Document 06/18/17 11:33 [id number] 06/18/17 11:34 06/11/17 06/18/17 10:54 11:33 Wound Center Nurse 2 #1 LEFT 2ND TOE -Time 10:55 11:33 -Correct Patient Yes Yes -Correct Side, Site, Position Yes Yes -Correct Procedure Yes Yes -Procedure Performed Yes Yes -Type of Procedure Debridement Debridement -Clinical Debridement Subcutaneous Subcutaneous -Post Debridement Size (cm) - Length 0.2 0.2 -Post Debridement Size (cm) - Width 0.2 0.2 -Post Debridement Size (cm) - Depth 0.2 0.2 -Total Square Cm 0.04 0.04 -Wound/Ulcer Outcome Not Healed Not Healed -Ulcer Cleansing Rinsed/ Rinsed/ Irrigated with Irrigated with Saline Saline -Foul Odor after Cleansing No No -Bioengineered Tissue No No -Bleeding Controlled with Pressure Pressure -Treatment Response Procedure Procedure Tolerated Well Tolerated Well Pain Scale: 0-10 Numeric Is Patient Pain Free? 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 Diabetes with neuropathy. Chronic kidney disease on hemodialysis. Delayed healing. Malnutrition suspected. Left foot deformity. Confusion and limited ability to participate in care plan Plan: No significant changes in the past week however, patient states that his pain has significantly reduced. He still on doxycycline as prescribed. No drainage from the wound and swelling is said to have reduced also. Debridement done as documented above. Procedure was well-tolerated. Continue Aquacel silver as initially recommended. Continue other conservative measures as discussed with Dr. Bach. Advised to call the wound center with any questions or concerns. Follow-up as scheduled with Dr. Diamond in a week. Follow-up at the wound center in 1 week. This note was generated with [employer] dictation software. It may contain incorrect words, spelling, and punctuation that were not noted in checking the note before signing.
--- NOTE | 2017-06-18 18:08 | PN.PCM_ITS ---
(1) Chronic ulcer of left foot with fat layer exposed Status: Chronic Current Visit: Yes Code(s): L97.522 - Non-pressure chronic ulcer of other part of left foot with fat layer exposed (2) Diabetes mellitus, type II Status: Chronic Current Visit: Yes Code(s): E11.9 - Type 2 diabetes mellitus without complications (3) Hallux valgus (acquired), left foot Status: Chronic Current Visit: Yes Code(s): M20.12 - Hallux valgus (acquired ), left foot (4) Osteomyelitis of left foot Status: Suspected Current Visit: Yes Code(s): M86.9 - Osteomyelitis, unspecified Type of Wound Date of Service: 06/18/17 Chief Complaint: Left foot ulcer History of Wound: This 76-year-old male is referred to the wound center from the foot and ankle center for left second toe chronic ulcer that continues to have recurrence. He did have a consultation previously with infectious disease , Dr. Kim. His antibiotics were changed to doxycycline and he continues as advised. He is confused and is only able to partially participate in his exam.His son will plan to attend his future clinic visits starting next week. He has pain to his toe. He denies fever, chills, nausea, vomiting, toe odor or redness. His toe swelling has decreased. He wears a surgical shoe. Progress of Wound: Courtesy visit for Dr Bach. Patient is here with his son today and wound is said to be stable. Pain of his left second toe is said to have improved. No significant discharge. He still on his antibiotics. - Physical Exam Vital Signs Temp Pulse Resp BP 97.7 F L 100 18 104/62 06/18/17 10:01 06/18/17 10:01 06/18/17 10:01 06/18/17 10:01 General: Alert, Cooperative, No apparent distress HEENT: Atraumatic, Normocephalic Oral: Moist Mucosa Neck: Supple Lungs: Normal air movement Cardiovascular: Tachycardic Extremities: No cyanosis Skin: Ulcer/ Wound Wound Measurements and Assessment WC - Nurse 1 - General Ulcer Measurement Start: 06/11/17 10:36 Freq: Status: Active Protocol: Activity Type Activity Date Activity User E-Sign Co-Sign Detail Recorded Client Recorded Date Recorded By Document 06/18/17 10:01 BARB [id number] 06/18/17 10:04 JF 06/18/17 10:01 Wound Center Nurse 1 [Ulcer Assessment] #1 LEFT 2ND TOE -Combined with other wound No -Current Size (cm) - Length 0.1 -Current Size (cm) - Width 0.1 -Current Size (cm) - Depth 0.1 -Total Square Cm 0.01 -Photo Taken No -Epithelialization Large 67-100% -Tunneling No -Undermining/Tunneling No -Circular Undermining No -Exudate Amt None Present (0 %) -Wound Margin Flat & Intact -Granulation Amt None Present (0 %) -Necrosis Amt Large (67-100%) -Necrotic Tissue Type Adherent Slough -Structure Exposed N/A -Texture (Kelsie-wound Skin Appearance) Assessed -Moisture (Kelsie-wound Skin Appearance Assessed ) Dry/Scaly -Color (Kelsie-wound Skin Appearance) Assessed -Temperature (Kelsie-wound Skin No Abnormality Appearance) (Pt Warm) -Tenderness on Palpation (Kelsie-wound No Skin Appearance) -Ulcer Cleansing Rinsed/ Irrigated with Saline -Foul Odor after Cleansing No -Anesthetic Used 5% Lidocaine Gel [Edema Assessment] -Lower Limb Edema Present Yes -Left Calf (cm) 30.9 -Left Ankle (cm) 20.0 WC - Nurse 2 - General Ulcer CM Notes Start: 06/11/17 10:36 Freq: Status: Active Protocol: Activity Type Activity Date Activity User E-Sign Co-Sign Detail Recorded Client Recorded Date Recorded By Document 06/18/17 11:33 DV [id number] 06/18/17 11:34 DV 06/18/17 11:33 Wound Center Nurse 2 [Procedure/Treatment] #1 LEFT 2ND TOE -Time 11:33 -Correct Patient Yes -Correct Side, Site, Position Yes -Correct Procedure Yes -Procedure Performed Yes -Type of Procedure Debridement -Clinical Debridement Subcutaneous -Post Debridement Size (cm) - Length 0.2 -Post Debridement Size (cm) - Width 0.2 -Post Debridement Size (cm) - Depth 0.2 -Total Square Cm 0.04 -Wound/Ulcer Outcome Not Healed -Ulcer Cleansing Rinsed/ Irrigated with Saline -Foul Odor after Cleansing No -Bioengineered Tissue No -Bleeding Controlled with Pressure -Treatment Response Procedure Tolerated Well [See Physician Procedure note for Specifics] Pain Scale: 0-10 Numeric [Pain] -Is Patient Pain Free? Yes Musculoskeletal: No Muscle Wasting Neurological: Cranial nerves II-XII grossly intact Psych/Mental Status: Normal Affect Debridement Note Post-Debridement Measurements/Treatment WC - Nurse 2 - General Ulcer CM Notes Start: 06/11/17 10:36 Freq: Status: Active Protocol: Activity Type Activity Date Activity User E-Sign Co-Sign Detail Recorded Client Recorded Date Recorded By Document 06/11/17 10:54 [id number] 06/11/17 10:56 Document 06/18/17 11:33 [id number] 06/18/17 11:34 06/11/17 06/18/17 10:54 11:33 Wound Center Nurse 2 #1 LEFT 2ND TOE -Time 10:55 11:33 -Correct Patient Yes Yes -Correct Side, Site, Position Yes Yes -Correct Procedure Yes Yes -Procedure Performed Yes Yes -Type of Procedure Debridement Debridement -Clinical Debridement Subcutaneous Subcutaneous -Post Debridement Size (cm) - Length 0.2 0.2 -Post Debridement Size (cm) - Width 0.2 0.2 -Post Debridement Size (cm) - Depth 0.2 0.2 -Total Square Cm 0.04 0.04 -Wound/Ulcer Outcome Not Healed Not Healed -Ulcer Cleansing Rinsed/ Rinsed/ Irrigated with Irrigated with Saline Saline -Foul Odor after Cleansing No No -Bioengineered Tissue No No -Bleeding Controlled with Pressure Pressure -Treatment Response Procedure Procedure Tolerated Well Tolerated Well Pain Scale: 0-10 Numeric Is Patient Pain Free? 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 Diabetes with neuropathy. Chronic kidney disease on hemodialysis. Delayed healing. Malnutrition suspected. Left foot deformity. Confusion and limited ability to participate in care plan Plan: No significant changes in the past week however, patient states that his pain has significantly reduced. He still on doxycycline as prescribed. No drainage from the wound and swelling is said to have reduced also. Debridement done as documented above. Procedure was well-tolerated. Continue Aquacel silver as initially recommended. Continue other conservative measures as discussed with Dr. Bach. Advised to call the wound center with any questions or concerns. Follow-up as scheduled with Dr. Diamond in a week. Follow-up at the wound center in 1 week. This note was generated with [employer] dictation software. It may contain incorrect words, spelling, and punctuation that were not noted in checking the note before signing.
[2017-06-25 09:16] VITALS: BP 114/63; PULSE 88; RESP 16; TEMP 35.9
--- NOTE | 2017-06-25 09:53 | PN.PCM_ITS ---
(1) Chronic ulcer of left foot with fat layer exposed Status: Chronic Code(s): L97.522 - Non-pressure chronic ulcer of other part of left foot with fat layer exposed (2) PVD (peripheral vascular disease) Status: Chronic Code(s): I73.9 - Peripheral vascular disease, unspecified (3) Osteomyelitis of left foot Status: Suspected Code(s): M86.9 - Osteomyelitis, unspecified (4) Type 2 diabetes mellitus with diabetic polyneuropathy Status: Chronic Code(s): E11.42 - Type 2 diabetes mellitus with diabetic polyneuropathy (5) Memory loss due to medical condition Status: Chronic Code(s): R41.3 - Other amnesia (6) End stage renal disease on dialysis Status: Chronic Code(s): N18.6 - End stage renal disease; Z99.2 - Dependence on renal dialysis Type of Wound Date of Service: 06/28/17 Chief Complaint: Left foot ulcer History of Wound: This 76-year-old male is referred to the wound center from the foot and ankle center for left second toe chronic ulcer that continues to have recurrence. He denies drainage and thinks it might be healed. He did have a consultation previously with infectious disease, Dr. Kim. His antibiotics were changed to doxycycline and he continues as advised. He is confused and is only able to partially participate in his exam.His son will plan to attend his future clinic visits and did attend his visit last week. He has decreased pain to his toe. He denies fever, chills, nausea, vomiting, toe odor or redness. He wears a surgical shoe. He saw a vascular surgeon, Dr. Diamond, this morning and does not remember what the plan entails. Progress of Wound: Healed - Physical Exam Vital Signs Temp Pulse Resp BP 96.6 F L 88 16 114/63 06/25/17 09:16 06/25/17 09:16 06/25/17 09:16 06/25/17 09:16 General: Alert, Oriented x3, Cooperative Extremities: No cyanosis, Capillary Refill Less than 3 Seconds, No Calf Tenderness - Negative Sue creatinine bilateral, Diminished Peripheral Pulses, Edema - Decreased to toe Skin: Ulcer/ Wound - No purulence, no erythema, streaking, odor, no acute signs of infection. Full epithelialization is noted in the wound site has healed. No maceration or eschar noted. Wound Measurements and Assessment - Nurse 1 - General Ulcer Measurement Start: 06/11/17 10:36 Freq: Status: Active Protocol: Activity Type Activity Date Activity User E-Sign Co-Sign Detail Recorded Client Recorded Date Recorded By Document 06/25/17 09:16 [email or web address] [id number] 06/25/17 09:21 DL 06/25/17 09:16 Wound Center Nurse 1 [Ulcer Assessment] #1 LEFT 2ND TOE -Current Size (cm) - Length 0.1 -Current Size (cm) - Width 0.1 -Current Size (cm) - Depth 0.1 -Total Square Cm 0.01 -Photo Taken No -Exudate Amt None Present (0 %) -Wound Margin Flat & Intact -Granulation Amt Large (67-100%) -Granulation Quality [place] -Necrosis Amt None Present (0 %) -Structure Exposed N/A -Texture (Kelsie-wound Skin Appearance) Scarring -Moisture (Kelsie-wound Skin Appearance No Abnormality ) -Color (Kelsie-wound Skin Appearance) No Abnormality -Temperature (Kelsie-wound Skin No Abnormality Appearance) (Pt Warm) -Tenderness on Palpation (Kelsie-wound Yes Skin Appearance) -Ulcer Cleansing Rinsed/ Irrigated with Saline -Foul Odor after Cleansing No -Anesthetic Used 4% Lidocaine Solution [Edema Assessment] -Left Calf (cm) 30 -Left Ankle (cm) 19 - Nurse 2 - General Ulcer CM Notes Start: 06/11/17 10:36 Freq: Status: Active Protocol: Activity Type Activity Date Activity User E-Sign Co-Sign Detail Recorded Client Recorded Date Recorded By Document 06/25/17 09:46 [id number] 06/25/17 09:47 06/25/17 09:46 Wound Center Nurse 2 [Procedure/Treatment] #1 LEFT 2ND TOE -Correct Patient No -Correct Side, Site, Position No -Correct Procedure No -Procedure Performed No -Post Debridement Size (cm) - Length 0 -Post Debridement Size (cm) - Width 0 -Post Debridement Size (cm) - Depth 0 -Total Square Cm 0 -Wound/Ulcer Outcome Healed- Epithelialized [See Physician Procedure note for Specifics] Pain Scale: 0-10 Numeric [Pain] -Is Patient Pain Free? Yes Musculoskeletal: No Tenderness to Palpation of Joints or Extremities, Muscle Wasting, - - Decreased pain to heel wound site left second toe Neurological: - - Lack of epicritic sensation light touch noted left foot Psych/Mental Status: Normal Affect, Appropriate Debridement Note Post-Debridement Measurements/Treatment WC - Nurse 2 - General Ulcer CM Notes Start: 06/11/17 10:36 Freq: Status: Active Protocol: Activity Type Activity Date Activity User E-Sign Co-Sign Detail Recorded Client Recorded Date Recorded By Document 06/11/17 10:54 [id number] 06/11/17 10:56 Document 06/18/17 11:33 [id number] 06/18/17 11:34 Document 06/25/17 09:46 [id number] 06/25/17 09:47 06/11/17 06/18/17 06/25/17 10:54 11:33 09:46 Wound Center Nurse 2 #1 LEFT 2ND TOE -Time 10:55 11:33 -Correct Patient Yes Yes No -Correct Side, Site, Position Yes Yes No -Correct Procedure Yes Yes No -Procedure Performed Yes Yes No -Type of Procedure Debridement Debridement -Clinical Debridement Subcutaneous Subcutaneous -Post Debridement Size (cm) - Length 0.2 0.2 0 -Post Debridement Size (cm) - Width 0.2 0.2 0 -Post Debridement Size (cm) - Depth 0.2 0.2 0 -Total Square Cm 0.04 0.04 0 -Wound/Ulcer Outcome Not Healed Not Healed Healed- Epithelialized -Ulcer Cleansing Rinsed/ Rinsed/ Irrigated with Irrigated with Saline Saline -Foul Odor after Cleansing No No -Bioengineered Tissue No No -Bleeding Controlled with Pressure Pressure -Treatment Response Procedure Procedure Tolerated Well Tolerated Well Pain Scale: 0-10 Numeric Is Patient Pain Free? Yes Yes Yes No debridement was completed today - The wound site has healed Assessment/Plan Assessment: left second digit ulcer recently healed with previous probe to joint /bone; concern of osteomyelitis (subacute) versus previous septic joint. Peripheral vascular disease. Diabetes with neuropathy. Chronic kidney disease on hemodialysis. Delayed healing. Malnutrition suspected. Left foot deformity. Confusion and limited ability to participate in care plan Plan: No significant changes in the past week however, patient states that his pain has significantly reduced. He has taken doxycycline as prescribed by infectious disease. No drainage from the wound and swelling is said to have reduced also. Debridement was not performed today because the wound site is healed. To discontinue dressings because the wound site has healed. I will request Dr. Diamond's notes to better understand the intervention plan. I recommend he continue with vascular surgery follow-up even though the wound has healed because this wound has healed and reopened on multiple occasions. To continue surgical shoe use at this time to the left foot. To maintain proper glycemic control. Advised to call the wound center with any questions or concerns. Follow-up as scheduled with Dr. Diamond as advised. Follow-up at the wound center in [address] Bach. This note was generated with [employer] dictation software. It may contain incorrect words, spelling, and punctuation that were not noted in checking the note before signing.
[2017-07-02 09:46] VITALS: BP 113/62; PULSE 94; RESP 18; TEMP 36.1
--- NOTE | 2017-07-02 09:48 | WC ---
L secon toe wound healed no drainage noted
--- NOTE | 2017-07-02 10:35 | PCM.WC.PN ---
(1) Chronic ulcer of left foot with fat layer exposed Status: Chronic Current Visit: No Code(s): L97.522 - Non-pressure chronic ulcer of other part of left foot with fat layer exposed (2) PVD (peripheral vascular disease) Status: Chronic Current Visit: No Code(s): I73.9 - Peripheral vascular disease, unspecified (3) Osteomyelitis of left foot Status: Suspected Current Visit: No Code(s): M86.9 - Osteomyelitis, unspecified (4) Type 2 diabetes mellitus with diabetic polyneuropathy Status: Chronic Current Visit: No Code(s): E11.42 - Type 2 diabetes mellitus with diabetic polyneuropathy (5) Memory loss due to medical condition Status: Chronic Current Visit: No Code(s): R41.3 - Other amnesia (6) End stage renal disease on dialysis Status: Chronic Current Visit: No Code(s): N18.6 - End stage renal disease; Z99.2 - Dependence on renal dialysis Type of Wound Date of Service: 07/02/17 Chief Complaint: Left foot ulcer History of Wound: This 76-year-old male is referred to the wound center from the foot and ankle center for left second toe chronic ulcer that continues to have recurrence. He denies drainage and thinks it might be healed. He is confused and is only able to partially participate in his exam. He has decreased pain to his toe. He denies fever, chills, nausea, vomiting, toe odor or redness. He wears a surgical shoe. He saw a vascular surgeon, Dr. Diamond and no intervention is planned. Progress of Wound: reamins Healed - Physical Exam Vital Signs Temp Pulse Resp BP 96.9 F L 94 18 113/62 07/02/17 09:46 07/02/17 09:46 07/02/17 09:46 07/02/17 09:46 General: Alert, Oriented x3, Cooperative Extremities: No cyanosis, Capillary Refill Less than 3 Seconds, No Calf Tenderness, Diminished Peripheral Pulses, Edema Skin: Ulcer/ Wound - Full epithelialization is noted in the wound remains healed. His skin is atrophic. There is no purulence, erythema, streaking, or infection noted. Wound Measurements and Assessment WC - Nurse 2 - General Ulcer CM Notes Start: 06/11/17 10:36 Freq: Status: Active Protocol: Activity Type Activity Date Activity User E-Sign Co-Sign Detail Recorded Client Recorded Date Recorded By Document 07/02/17 10:04 [id number] 07/02/17 10:05 07/02/17 10:04 Pain Scale: 0-10 Numeric [Pain] -Is Patient Pain Free? Yes Musculoskeletal: No Tenderness to Palpation of Joints or Extremities, Muscle Wasting Neurological: Sensory exam intact to light touch and pain Psych/Mental Status: Normal Affect, Appropriate Debridement Note Post-Debridement Measurements/Treatment WC - Nurse 2 - General Ulcer CM Notes Start: 06/11/17 10:36 Freq: Status: Active Protocol: Activity Type Activity Date Activity User E-Sign Co-Sign Detail Recorded Client Recorded Date Recorded By Document 06/11/17 10:54 [id number] 06/11/17 10:56 Document 06/18/17 11:33 [id number] 06/18/17 11:34 Document 06/25/17 09:46 [id number] 06/25/17 09:47 Document 07/02/17 10:04 [id number] 07/02/17 10:05 06/11/17 06/18/17 06/25/17 10:54 11:33 09:46 Wound Center Nurse 2 #1 LEFT 2ND TOE -Time 10:55 11:33 -Correct Patient Yes Yes No -Correct Side, Site, Position Yes Yes No -Correct Procedure Yes Yes No -Procedure Performed Yes Yes No -Type of Procedure Debridement Debridement -Clinical Debridement Subcutaneous Subcutaneous -Post Debridement Size (cm) - Length 0.2 0.2 0 -Post Debridement Size (cm) - Width 0.2 0.2 0 -Post Debridement Size (cm) - Depth 0.2 0.2 0 -Total Square Cm 0.04 0.04 0 -Wound/Ulcer Outcome Not Healed Not Healed Healed- Epithelialized -Ulcer Cleansing Rinsed/ Rinsed/ Irrigated with Irrigated with Saline Saline -Foul Odor after Cleansing No No -Bioengineered Tissue No No -Bleeding Controlled with Pressure Pressure -Treatment Response Procedure Procedure Tolerated Well Tolerated Well Pain Scale: 0-10 Numeric Is Patient Pain Free? Yes Yes Yes 07/02/17 10:04 Wound Center Nurse 2 #1 LEFT 2ND TOE -Time -Correct Patient -Correct Side, Site, Position -Correct Procedure -Procedure Performed -Type of Procedure -Clinical Debridement -Post Debridement Size (cm) - Length -Post Debridement Size (cm) - Width -Post Debridement Size (cm) - Depth -Total Square Cm -Wound/Ulcer Outcome -Ulcer Cleansing -Foul Odor after Cleansing -Bioengineered Tissue -Bleeding Controlled with -Treatment Response Pain Scale: 0-10 Numeric Is Patient Pain Free? Yes No debridement was completed today - Wound has healed Assessment/Plan Assessment: left second digit ulcer recently healed with previous probe to joint/bone; concern of osteomyelitis (subacute) versus previous septic joint. Peripheral vascular disease. Diabetes with neuropathy. Chronic kidney disease on hemodialysis. Delayed healing. Malnutrition suspected. Left foot deformity. Confusion and limited ability to participate in care plan Plan: And reviewed and discussed his care plan. His wound site remains healed. No significant changes in the past week however, patient states that his pain has significantly reduced. He has taken doxycycline as prescribed by infectious disease. No drainage from the wound and swelling is said to have reduced also. Debridement was not performed today because the wound site is healed. To discontinue dressings because the wound site remains healed. I will request Dr. Diamond's notes to better understand the intervention plan. She has moderate level peripheral vascular disease and was advised to follow-up in 1 year. To continue surgical shoe use at this time to the left foot and it is okay to transition into a supportive and protective shoe with adequate toe room. To maintain proper glycemic control. Advised to call the wound center with any questions or concerns. Follow-up as scheduled with Dr. Diamond as advised. He is discharged from the wound care center at this time. He was advised to follow-up at the foot and ankle center in 2 months for healed wound check and for palliative care assistance. This note was generated with [employer] software. It may contain incorrect words, spelling, and punctuation that were not noted in checking the note before signing.
--- NOTE | 2017-07-02 10:39 | PN.PCM_ITS ---
(1) Chronic ulcer of left foot with fat layer exposed Status: Chronic Current Visit: No Code(s): L97.522 - Non-pressure chronic ulcer of other part of left foot with fat layer exposed (2) PVD (peripheral vascular disease) Status: Chronic Current Visit: No Code(s): I73.9 - Peripheral vascular disease, unspecified (3) Osteomyelitis of left foot Status: Suspected Current Visit: No Code(s): M86.9 - Osteomyelitis, unspecified (4) Type 2 diabetes mellitus with diabetic polyneuropathy Status: Chronic Current Visit: No Code(s): E11.42 - Type 2 diabetes mellitus with diabetic polyneuropathy (5) Memory loss due to medical condition Status: Chronic Current Visit: No Code(s): R41.3 - Other amnesia (6) End stage renal disease on dialysis Status: Chronic Current Visit: No Code(s): N18.6 - End stage renal disease; Z99.2 - Dependence on renal dialysis Type of Wound Date of Service: 07/02/17 Chief Complaint: Left foot ulcer History of Wound: This 76-year-old male is referred to the wound center from the foot and ankle center for left second toe chronic ulcer that continues to have recurrence. He denies drainage and thinks it might be healed. He is confused and is only able to partially participate in his exam. He has decreased pain to his toe. He denies fever, chills, nausea, vomiting, toe odor or redness. He wears a surgical shoe. He saw a vascular surgeon, Dr. Diamnod and no intervention is planned. Progress of Wound: reamins Healed - Physical Exam Vital Signs Temp Pulse Resp BP 96.9 F L 94 18 113/62 07/02/17 09:46 07/02/17 09:46 07/02/17 09:46 07/02/17 09:46 General: Alert, Oriented x3, Cooperative Extremities: No cyanosis, Capillary Refill Less than 3 Seconds, No Calf Tenderness, Diminished Peripheral Pulses, Edema Skin: Ulcer/ Wound - Full epithelialization is noted in the wound remains healed. His skin is atrophic. There is no purulence, erythema, streaking, or infection noted. Wound Measurements and Assessment WC - Nurse 2 - General Ulcer CM Notes Start: 06/11/17 10:36 Freq: Status: Active Protocol: Activity Type Activity Date Activity User E-Sign Co-Sign Detail Recorded Client Recorded Date Recorded By Document 07/02/17 10:04 [id number] 07/02/17 10:05 07/02/17 10:04 Pain Scale: 0-10 Numeric [Pain] -Is Patient Pain Free? Yes Musculoskeletal: No Tenderness to Palpation of Joints or Extremities, Muscle Wasting Neurological: Sensory exam intact to light touch and pain Psych/Mental Status: Normal Affect, Appropriate Debridement Note Post-Debridement Measurements/Treatment WC - Nurse 2 - General Ulcer CM Notes Start: 06/11/17 10:36 Freq: Status: Active Protocol: Activity Type Activity Date Activity User E-Sign Co-Sign Detail Recorded Client Recorded Date Recorded By Document 06/11/17 10:54 [id number] 06/11/17 10:56 Document 06/18/17 11:33 [id number] 06/18/17 11:34 Document 06/25/17 09:46 [id number] 06/25/17 09:47 Document 07/02/17 10:04 [id number] 07/02/17 10:05 06/11/17 06/18/17 06/25/17 10:54 11:33 09:46 Wound Center Nurse 2 #1 LEFT 2ND TOE -Time 10:55 11:33 -Correct Patient Yes Yes No -Correct Side, Site, Position Yes Yes No -Correct Procedure Yes Yes No -Procedure Performed Yes Yes No -Type of Procedure Debridement Debridement -Clinical Debridement Subcutaneous Subcutaneous -Post Debridement Size (cm) - Length 0.2 0.2 0 -Post Debridement Size (cm) - Width 0.2 0.2 0 -Post Debridement Size (cm) - Depth 0.2 0.2 0 -Total Square Cm 0.04 0.04 0 -Wound/Ulcer Outcome Not Healed Not Healed Healed- Epithelialized -Ulcer Cleansing Rinsed/ Rinsed/ Irrigated with Irrigated with Saline Saline -Foul Odor after Cleansing No No -Bioengineered Tissue No No -Bleeding Controlled with Pressure Pressure -Treatment Response Procedure Procedure Tolerated Well Tolerated Well Pain Scale: 0-10 Numeric Is Patient Pain Free? Yes Yes Yes 07/02/17 10:04 Wound Center Nurse 2 #1 LEFT 2ND TOE -Time -Correct Patient -Correct Side, Site, Position -Correct Procedure -Procedure Performed -Type of Procedure -Clinical Debridement -Post Debridement Size (cm) - Length -Post Debridement Size (cm) - Width -Post Debridement Size (cm) - Depth -Total Square Cm -Wound/Ulcer Outcome -Ulcer Cleansing -Foul Odor after Cleansing -Bioengineered Tissue -Bleeding Controlled with -Treatment Response Pain Scale: 0-10 Numeric Is Patient Pain Free? Yes No debridement was completed today - Wound has healed Assessment/Plan Assessment: left second digit ulcer recently healed with previous probe to joint /bone; concern of osteomyelitis (subacute) versus previous septic joint. Peripheral vascular disease. Diabetes with neuropathy. Chronic kidney disease on hemodialysis. Delayed healing. Malnutrition suspected. Left foot deformity. Confusion and limited ability to participate in care plan Plan: And reviewed and discussed his care plan. His wound site remains healed. No significant changes in the past week however, patient states that his pain has significantly reduced. He has taken doxycycline as prescribed by infectious disease. No drainage from the wound and swelling is said to have reduced also. Debridement was not performed today because the wound site is healed. To discontinue dressings because the wound site remains healed. I will request Dr. Diamond's notes to better understand the intervention plan. She has moderate level peripheral vascular disease and was advised to follow-up in 1 year. To continue surgical shoe use at this time to the left foot and it is okay to transition into a supportive and protective shoe with adequate toe room. To maintain proper glycemic control. Advised to call the wound center with any questions or concerns. Follow-up as scheduled with Dr. Diamond as advised. He is discharged from the wound care center at this time. He was advised to follow-up at the foot and ankle center in 2 months for healed wound check and for palliative care assistance. This note was generated with [employer] software. It may contain incorrect words, spelling, and punctuation that were not noted in checking the note before signing.
== END 2017-07-10 23:59 ==
LOC: WC 10:00
PROVIDERS: Family Provider Internal Medicine; PCP Internal Medicine; Visit Provider Podiatrist
DX: L97.522 Non-pressure chronic ulcer of other part of left foot with fat layer exposed (principal); I73.9 Peripheral vascular disease, unspecified; M86.9 Osteomyelitis, unspecified; E11.42 Type 2 diabetes mellitus with diabetic polyneuropathy; R41.3 Other amnesia; N18.6 End stage renal disease; Z99.2 Dependence on renal dialysis; M20.12 Hallux valgus (acquired), left foot
CPT/HCPCS: 11042; 99212; G0463

== ENCOUNTER 2018-04-14 08:25 | Emergency (ER) | payer MEDICARE, SELFPAY ==
[2017-06-30 09:09] VITALS: BMI 24.4
[2018-04-14 08:36] VITALS: TEMP 36.1; BMI 34.1
--- NOTE | 2018-04-14 08:50 | EKG12_ITS ---
Test Reason : CODE BLUE Blood Pressure : / mmHG Vent. Rate : 047 BPM Atrial Rate : 288 BPM P-R Int : 000 ms QRS Dur : 174 ms QT Int : 492 ms P-R-T Axes : 000 -63 090 degrees QTc Int : 435 ms Junctional bradycardia Left axis deviation Right bundle branch block Possible Lateral infarct , age undetermined Abnormal ECG Confirmed by KILEY ANN ([id number]), editor city ROVERTO ENG ([id number]) on 04/17/2018 1:22:22 PM Referred By: LIBAN Confirmed By:KILEY ANN
--- NOTE | 2018-04-14 09:00 | RAD_ITS ---
STUDY: X-RAY CHEST REASON FOR EXAM: Male, 75 years old. Post CPR. Endotracheal tube placement. TECHNIQUE: Single AP portable view of the chest. COMPARISON: None. FINDINGS: An endotracheal tube is in situ. The tip is at 6.8 cm proximal to the felicity. EKG electrodes are seen. There is evidence of diffuse bilateral airspace disease worse in the right lower lobe. I suspect the airspace disease superimposed on chronic lung fibrosis. There is no demonstrated pleural abnormality. There is borderline cardiomegaly. Normal mediastinum and josue. Normal visualized pulmonary arteries. There is atherosclerotic calcification of the aortic arch with tortuosity. There are diffuse degenerative changes of the visualized thoracic spine. Normal visualized ribs, clavicles, and shoulders. There is no demonstrated abnormality of the visualized soft tissue structures of the upper abdomen. RAD/Chest 1 View (Portable) IMPRESSION: Diffuse bilateral airspace disease worse in the right lower lobe. The tip of the endotracheal tube is at 6.8 cm proximal to the felicity. Electronically Signed: Vaughn Bowen, at 9:27 EST , Service support ,
[2018-04-14 09:03] VITALS: PULSE 71; RESP 32; O2SAT 83
[2018-04-14 09:11] LABS: Base Excess -23 mmol/L (-2 to +2); Bicarbonate 11.6 mmol/L (22-26); Blood Gas Specimen Type ART; FI02 15; PO2 70 mmHG (75-100); SITE R Brachial; SO2 72 % (95-99); Time Given 852; Total Carbon Dioxide 14 mmol/L; pCO2 71.6 mmHg (35-45); pH 6.82 (7.35-7.45)
[2018-04-14 09:14] LABS: Absolute Neutrophil Count 17.3 X10^3/uL (2.0-7.7); Basophil# 0.06 X10^3/uL; Basophil% 0.3 % (0-1); Eosinophil# 0.04 X10^3/uL; Eosinophils% 0.2 % (0-5); Hematocrit 36.1 % (40-54); Hemoglobin 11.4 g/dl (13.0-16.5); Lymphocyte % 11.5 % (19-41); Mean Corp Hgb Conc 31.6 g/gl (32-36); Mean Corpuscular Hgb 32.9 pg (27.0-32.0); Mean Platelet Vol. 10.7 fl (6.2-12.0); Neutrophil # 17.26 X10^3/uL (2.7-7.7); Neutrophil % 79.5 % (47-70); Platelet Count 299 K/mm3 (150-450); RBC Distribution Width CV 14.3 % (11.6-14.6); RBC Distribution Width SD 52.9 fl (35.1-43.9); Red Blood Count 3.47 M/mm3 (4.6-6.2); White Blood Count 21.7 K/mm3 (4.4-11.0)
[2018-04-14 09:15] LABS: POSITIVE COUNT YES; POSITIVE DIFFERENTIAL NO; POSITIVE MORPHOLOGY YES
[2018-04-14 09:21] LABS: International Normalized Ratio 1.5; Prothrombin Time (Protime)PT. 18.3 SECONDS (11.7-14.9)
[2018-04-14 09:22] LABS: Partial Thromboplast Time 60.6 Seconds (24.1-36.2)
[2018-04-14 09:41] LABS: Base Excess -20 mmol/L (-2 to +2); Bicarbonate 12.8 mmol/L (22-26); Blood Gas Specimen Type ART; FI02 100; Mode A-C; O2 Delivery Device Vent; PEEP 10; PO2 82 mmHG (75-100); RR 16; SITE R Femoral; SO2 84 % (95-99); Time Given 928; Total Carbon Dioxide 15 mmol/L; Vt 500; pCO2 67.5 mmHg (35-45); pH 6.89 (7.35-7.45)
[2018-04-14 09:45] LABS: ALB/GLOB Ratio 0.6 RATIO (0.9-2.4); AST(SGOT) 52 U/L (15-37); Alanine Aminotransfer ALT/SGPT 29 U/L (16-61); Albumin, Serum 2.1 g/dL (3.2-5.0); Alkaline Phosphatase 110 U/L (45-117); Anion Gap 22 (5-15); BUN 36 mg/dL (7-18); BUN/Creat Ratio 6.1 RATIO (10-20); Calcium,Total 11.7 mg/dL (8.5-10.1); Chloride 103 mmol/L (98-107); Creatinine, Serum 5.87 mg/dL (0.70-1.30); EST Glomerular Filtration Rate 10 mL/min (>60); Est Glom Filt Rate - Afr Amer 12 mL/min (>60); Globulin 3.7 g/dL (2.2-4.2); Glucose 496 mg/dL (74-106); Lipase 124 U/L (73-393); Magnesium 2.7 mg/dL (1.6-2.6); Potassium 3.5 mmol/L (3.5-5.1); Protein, Total 5.8 g/dL (6.4-8.2); Sodium Level 141 mmol/L (136-145)
--- NOTE | 2018-04-14 09:50 | ECHOL_ITS ---
Reason For Study: Cardiac Arrest Procedure This was a limited 2D transthoracic echocardiogram. Limited views were obtained. The study was technically difficult. Exam performed portable in ED. Left Ventricle Severe segmental systolic dysfunction (see wall motion). The estimated ejection fraction is 10 %. Unable to assess diastolic dysfunction. Anterio-Basal: Hypokinetic. Lateral-Basal: Hypokinetic. Posterior-Basal: Hypokinetic. Basal anteroseptal: Hypokinetic. Mid-Anterior : Akinetic. Mid- Lateral : Akinetic. Mid-Posterior: Akinetic. Mid-Inferior: Akinetic. Mid-inferoseptal : Akinetic. Mid-anteroseptal : Akinetic. Orange : Akinetic. Right Ventricle Normal RV size. Mild global right ventricular systolic dysfunction. Atria Normal left atrium. Normal right atrium. No doppler evidence for ASD. Mitral Valve There is no mitral annular calcification. Normal mitral valve. Mild (1+) mitral valve insufficiency. Tricuspid Valve Normal tricuspid valve. Trivial tricuspid valve insufficiency. Right ventricular systolic pressure estimated to be 17 mmHg. Aortic Valve The aortic valve is not well visualized. Pulmonic Valve The pulmonic valve is not well visualized. Great Vessels The aortic root is not well visualized. Pericardium/Pleural No pericardial effusion. Doppler Measurements & Calculations TR max salas: 184.9 cm/sec TR max P.7 mmHg Interpretation Summary Limited views were obtained. The study was technically difficult. Severe segmental systolic dysfunction (see wall motion). The estimated ejection fraction is 10 %. Mild (1+) mitral valve insufficiency. Trivial tricuspid valve insufficiency. Right ventricular systolic pressure estimated to be 17 mmHg. Unable to assess diastolic dysfunction. Ordering Physician: Jody Rosen Performed By: Ashley Orozco RDCS
[2018-04-14 09:52] VITALS: RESP 23
[2018-04-14 09:57] VITALS: BP 101/70; BP 105/67; BP 105/83; BP 106/72; BP 136/109; BP 49/37; BP 60/20; BP 61/26; BP 69/55; BP 70/40; BP 70/52; BP 71/57; BP 75/53; BP 75/54; BP 75/61; BP 76/55; BP 76/56; BP 81/62; BP 84/34; BP 88/62; BP 92/62; PULSE 100; PULSE 102; PULSE 107; PULSE 109; PULSE 110; PULSE 147; PULSE 28; PULSE 40; PULSE 46; PULSE 48; PULSE 50; PULSE 55; PULSE 56; PULSE 59; PULSE 60; PULSE 63; PULSE 66; PULSE 70; PULSE 71; PULSE 95; PULSE 97; RESP 16; RESP 18; RESP 20; RESP 60; TEMP 36.2; O2SAT 60; O2SAT 80; O2SAT 82; O2SAT 85; O2SAT 86
[2018-04-14 09:59] LABS: Lactic Acid 15.5 mmol/L (0.4-2.0)
--- NOTE | 2018-04-14 10:17 | EKG12_ITS ---
Test Reason : CODE BLUE Blood Pressure : / mmHG Vent. Rate : 102 BPM Atrial Rate : 098 BPM P-R Int : 000 ms QRS Dur : 136 ms QT Int : 396 ms P-R-T Axes : 000 109 -13 degrees QTc Int : 516 ms Atrial fibrillation with rapid ventricular response Right bundle branch block Anteroseptal infarct , age undetermined Abnormal ECG Possible lateral ischemia Confirmed by KILEY ANN ([id number]), slot editor ROVERTO ENG ([id number]) on 04/17/2018 1:24:09 PM Referred By: LIBAN Confirmed By:KILEY ANN
--- NOTE | 2018-04-14 10:17 | EKG12_ITS ---
Test Reason : CODE BLUE Blood Pressure : / mmHG Vent. Rate : 062 BPM Atrial Rate : 046 BPM P-R Int : 000 ms QRS Dur : 148 ms QT Int : 500 ms P-R-T Axes : 264 023 188 degrees QTc Int : 507 ms 1st degree AV block Sinus bradycardia Premature ventricular complexes Premature atrial complexes Left bundle branch block Abnormal ECG Confirmed by KILEY ANN ([id number]), design editor ROVERTO ENG ([id number]) on 04/17/2018 1:23:43 PM Referred By: LIBAN Confirmed By:KILEY ANN
--- NOTE | 2018-04-14 10:18 | ED.RN ---
CODE CALLED AT 10:00 AM PER FAMILY REQUEST. SEE DOCUMENTATION FOR ALL CARE AND CODE INFORMATION. DR LOUIE,DR ALY, DR THEODORE ALL AT BEDSIDE.HYUN SERRANO WITH FAMILY
--- NOTE | 2018-04-14 10:30 | CASEMGMT ---
Social Work Emergency Department Responded to Code Blue situation for support to family. Arrived to the ED shortly before the patient's son Eduardo arrived to the department. Answered the son's questions as able and sat with the son for duration of time in the ED. Son initially alone but then son's Lucia arrived. Updated Lucia. During time in the ED the patient's daughter Nicole, who lives out of state, was called and given updates as well as had the opportunity to talk high density press operator about options for intervention. Through conversation with son learned that patient has been on dialysis for years, schedule is and that patient has been adherent to dialysis treatments. The son reports the family had recently started conversation about getting patient into a [facility] apartment. Per son, the patient had not completed Living Will or Power of Room Server. Son reports to know that the patient would not want to be on a ventilator, as patient's who is for several years now had to be on a ventilator and decision had to be made by family to stop care. Son desired to be in the room for duration of interventions being performed. Son tearful and crying at times, at other times calm but sad. Provided support as indicated to this family and asked clarifying questions of medical staff when son seemed to be having a hard time. Son and daughter were able to talk on the phone about whether to continue CPR or stop care. Decision ultimately made by family, after multiple resuscitation attempts. Did offer to call orthodontic treatment coordinator or local methodist but son declined. No methodist affiliation for this patient. Son and daughter in law expressed much gratitude for social work support, as well as support from the ED team in caring for the patient. Son chose [place] home. Left the ED without issue shortly after time of . Let the son know that if in need of direction on where to turn down the road for grief support hospital social work available to assist as indicated. -MANNY Salas, CLUB LOUNGE ATTENDANT
--- NOTE | 2018-04-14 11:19 | CPS ---
Critical Results for ABG @ 8:59 read to . Physician aware of results.
--- NOTE | 2018-04-14 11:21 | CPS ---
Critical Results of ABG @ 9:33 read to . Physician aware of results.
--- NOTE | 2018-04-14 12:17 | ED.RN ---
ALL MEDS GIVEN IN CODE SITUATION. NOT DOCUMENTED ON MAR AT THIS TIME
[2018-04-14] MEDS: 0.9% Normal Saline 1,000 ML 150 ML IV (12:25)
[2018-04-14] MEDS: 0.9% Normal Saline 1,000 ML 1000 ML IV (12:25)
--- NOTE | 2018-04-14 12:26 | ED.RN ---
UNABLE TO OBTAIN ALLERGY INFO AT THIS TIME
[2018-04-14 13:12] LABS: Reflex Lactate? Y
--- NOTE | 2018-04-14 13:57 | ED.RN ---
approximately 1500ml NS infused during code.
--- NOTE | 2018-04-14 15:55 | ED.DCSUM_ITS ---
- ER Visit Summary Date of Service: 04/14/18 Chief Complaint: Cardiac arrest History of Present Illness: The patient is a 77 M who reportedly was in bed today with chest pains. EMS arrived he was speaking with them and was being loaded into the back of the ambulance when he went into cardiac arrest. Unfor tunately there is no EKG or rhythm strip obtained before he went into cardiac arrest. Patient had approximately 15 minutes of CPR during which time he received 2 rounds of epinephrine and was intubated. Patient arrives with active CPR. He has a chronic dialysis patient who last had dialysis on Friday. He has known coronary artery disease having had cardiac stents. Patient has a smoking history. He has no advanced directives. Physical Examination: Gen: Well-nourished well-developed Head: Normocephalic atraumatic Eyes: Pupils fixed and dilated ENT: Endotracheal tube in place. No evident trauma Neck: Supple no lymphadenopathy no JVD nontender CVS: A systolic palpable pulses no cardiac motion on ultrasound Respiratory: Bagged respirations that are equal bilaterally Abdomen: Soft nontender nondistended Extremity: Immitis no edema fistula upper extremity there is a left tibial IO Skin: Pale with mottling Neuro: Unresponsive no response to pain Testing: White count 21.7 hemoglobin 11.4. PH 6.89. Lactic acid 15.5. Troponin 3.9. Magnesium 2.7. Creatinine 5.87. Chest x-ray with pulmonary edema. Emergency Department Course and Treatment: Patient arrived in the resuscitation bay. He received an amp of calcium chloride one amp of bicarbonate 1 amp of epinephrine through an IO. After circulation the patient had a pulse. EKG was obtained which was concerning for early elevation in V 4 through V6. Patient went into cardiac arrest again and CPR was started. He received additional epinephrine. We achieved ROSC. During this. A left femoral central line was placed under ultrasound guidance using sterile modified Seldinger technique. This was sutured into place and dressing applied. We started Levophed. Results of the ABG demonstrated profound acidosis and the patient received several more amps of bicarbonate. Repeat EKG shows the lateral changes to be resolved but now more concerning for elevation V1 V2 V3. EKGs were sent both the Dr. Bearden and the STEMI physician Dr. Rosen. Dr. Naranjo from intensive care unit also came to the emergency room. Dr. Rosen arrived. Patient had several more episodes where he lost his pulse and received brief CPR and ACLS protocol. Son has been in the room for the majority of the resuscitation. We discussed ceasing care and the patient was eventually pronounced . Impression: 1. Cardiac arrest 2. Left femoral central line by physician 3. Critical care time 100 minutes This note was generated with [employer] dictation software. It may contain incorrect words, spelling, and punctuation that were not noted in review of the chart prior to signing ED Disposition - Plan for ED Patient: Disposition: Referrals: Geovanna Ly DO [Primary Care Provider] -
[2018-04-15 14:39] LABS: Pathologist Review Reviewed
== END 2018-04-14 15:04 ==
PROVIDERS: Emergency Provider Emergency Medicine; Family Provider Internal Medicine; PCP Internal Medicine
DX: I46.9 Cardiac arrest, cause unspecified (principal); I25.10 Atherosclerotic heart disease of native coronary artery without angina pectoris; N18.9 Chronic kidney disease, unspecified; Z99.2 Dependence on renal dialysis; Z72.0 Tobacco use; Z95.5 Presence of coronary angioplasty implant and graft
CPT/HCPCS: 31500; 31720; 36600; 51702; 71045; 80053; 82803; 83605; 83690; 83735; 84484; 85025; 85610; 85730; 92950; 93005; 93308; 94002; 94770; 99282; J7030; J7050; A4216; C1751